=== PATIENT | male | born 1950 | race Two or more races ===

== ENCOUNTER 2016-12-29 00:05 | Emergency (ER) | payer OTHER ==
[~2016-12-29] VITALS: Ht 172.7 cm; Wt 77.1 kg
[~2016-12-29 00:05] MED LIST: ASPI-482 PO; LISI-334 PO; SIMV20TA3 PO
[2016-12-29] MEDS ORDERED: IPRATRPIUM/ALBUTEROL 0.5/2.5MG 3 ML NEBU. NEB ONE (01:30)
--- NOTE | 2016-12-29 02:06 | PHYS DOC ---
Past Medical History Past Medical History: Hypertension, TIA Additional Past Medical Histor: BPH Past Surgical History: Other Additional Past Surgical Histo: prostate, eyes Alcohol Use: None Drug Use: None Adult General Chief Complaint Chief Complaint: SHORTNESS OF BREATH HPI HPI 58-year-old male presenting the emergency department with worsening shortness of breath and cough. This started approximately 3-4 hours ago. He denies a history of heart or lung disease. His cough is nonproductive. He denies any pain. He denies pain in his chest. Location lungs. Duration intermittent. No alleviating factors present. No specific timing. Review of systems is negative for abdominal pain nausea vomiting fevers or chills. He denies diaphoresis. All other review of systems is negative unless otherwise noted in history of present illness. Review of Systems Review of Systems SEE ABOVE. Current Medications Current Medications Current Medications Medications (Trade) Dose Ordered Sig/Gracy Start Time Stop Time Status Last Admin Dose Admin Albuterol/ Ipratropium (Duoneb) 3 ml 1X ONCE 12/29/16 01:30 12/29/16 01:31 DC 12/29/16 02:26 3 ML Allergies Allergies Allergies Coded Allergies Type Severity Reaction Last Updated Verified ibuprofen Allergy Mild hypertension 01/11/14 No Physical Exam Physical Exam Constitutional: Well developed, well nourished, no acute distress, non-toxic appearance. HENT: Normocephalic, atraumatic, bilateral external ears normal, oropharynx moist, no oral exudates, nose normal. [] Eyes: PERRLA, EOMI, conjunctiva normal, no discharge. Neck: Normal range of motion, no tenderness, supple, no stridor. [] Cardiovascular:Heart rate regular rhythm, no murmur [] Lungs & Thorax: Bilateral breath sounds clear to auscultation Abdomen: Bowel sounds normal, soft, no tenderness, no masses, no pulsatile masses. [] Skin: Warm, dry, no erythema, no rash. Back: No tenderness, no CVA tenderness. [] Extremities: No tenderness, no cyanosis, no clubbing, ROM intact, no edema. Neurologic: Alert and oriented X 3, normal motor function, normal sensory function, no focal deficits noted. [] Psychologic: Affect normal, judgement normal, mood normal. [] Current Patient Data Vital Signs Vital Signs Date Time Temp Pulse Resp B/P Pulse Ox O2 Delivery O2 Flow Rate FiO2 3/18/17 02:27 95 Room Air 12/29/16 00:53 96 16 12/29/16 00:09 98.0 141/89 98.0 Lab Values Laboratory Tests Test 12/29/16 02:15 White Blood Count 10.4x10^3/uL (4.0-11.0) Red Blood Count 5.13x10^6/uL (4.30-5.70) Hemoglobin 15.9g/dL (13.0-17.5) Hematocrit 47.9% (39.0-53.0) Mean Corpuscular Volume 93fL (79-100) Mean Corpuscular Hemoglobin 31pg (25-35) Mean Corpuscular Hemoglobin Concent 33g/dL (31-37) Red Cell Distribution Width 13.8% (11.5-14.5) Platelet Count 201x10^3/uL (140-400) Neutrophils (%) (Auto) 62% (31-73) Lymphocytes (%) (Auto) 23% (24-48) L Monocytes (%) (Auto) 13% (0-9) H Eosinophils (%) (Auto) 3% (0-3) Basophils (%) (Auto) 1% (0-3) Neutrophils # (Auto) 6.4x10^3uL (1.8-7.7) Lymphocytes # (Auto) 2.4x10^3/uL (1.0-4.8) Monocytes # (Auto) 1.3x10^3/uL (0.0-1.1) H Eosinophils # (Auto) 0.3x10^3/uL (0.0-0.7) Basophils # (Auto) 0.0x10^3/uL (0.0-0.2) Sodium Level 144mmol/L (136-145) Potassium Level 4.3mmol/L (3.5-5.1) Chloride Level 106mmol/L (98-107) Carbon Dioxide Level 27mmol/L (21-32) Anion Gap 11 (6-14) Blood Urea Nitrogen 18mg/dL (8-26) Creatinine 0.7mg/dL (0.7-1.3) Estimated GFR (Cockcroft-Gault) 112.1 Glucose Level 106mg/dL (70-99) H Calcium Level 8.9mg/dL (8.5-10.1) Total Bilirubin 0.4mg/dL (0.2-1.0) Direct Bilirubin 0.1mg/dL (0.0-0.2) Aspartate Amino Transferase (AST) 66U/L (15-37) H Alanine Aminotransferase (ALT) 109U/L (16-63) H Alkaline Phosphatase 51U/L (46-116) Troponin I Quantitative < 0.017ng/mL (0.000-0.055) OD-Oij-R-Type Natriuretic Peptide 43pg/mL (0-124) Total Protein 7.6g/dL (6.4-8.2) Albumin 3.7g/dL (3.4-5.0) Lipase 191U/L (73-393) Laboratory Tests 12/29/16 02:15 Laboratory Tests 12/29/16 02:15 EKG EKG [] Radiology/Procedures Radiology/Procedures [] Course & Med Decision Making Course & Med Decision Making Pertinent Labs and Imaging studies reviewed. (See chart for details) 58-year-old male presenting to the emergency Department shortness of breath. EKG shows sinus rhythm with a regular rate. ST segments congruent. Vital signs afebrile normal heart rate. Mild hypertensive. Pertinent physical exam findings show normal lungs to auscultation. Regular rate and rhythm. Patient's comfortably sitting in our emergency department without distress. Chest x-ray shows no obvious infiltrate or pneumothorax. Blood work obtained. Patient received a DuoNeb in the emergency department and reported improved symptomatology. Patient had a nuclear medicine cardiac scan back in December 2013 which was unremarkable. Blood work shows normal CBC. Chemistry panel unremarkable. Troponin negative. Patient subsequently discharged home to follow- up with his primary care doctor over the next 2-3 days if the symptoms continue. Dragon Disclaimer Dragon Disclaimer This electronic medical record was generated, in whole or in part, using a voice recognition dictation system. Departure Departure Impression: Primary Impression: Shortness of breath Disposition: 01 HOME, SELF-CARE Condition: STABLE Referrals: MERLE JARRETT MD (PCP) Patient Instructions: Shortness of Breath Additional Instructions: Thank you for allowing us to participate in your care today. Followup with your primary care physician in 3 days if your symptoms do not improve. If you do not have a primary care provider you can ask for a list of our primary care providers. Return to the emergency department you have any new or concerning findings. This should be evaluated by the primary care physician and any necessary consulting services for continued management within a few days after discharge. Return to emergency room if you have any new or concerning symptoms including but not limited to fever, chills, nausea, vomiting, intractable pain, any new rashes, chest pain, shortness of air, uncontrolled bleeding, difficulty breathing, and/or vision loss. You may have been prescribed medication that can change in your level of thinking and ability to operate machinery. These medications include hydrocodone and Ativan. Also, Benadryl has been known to do this as well. Be sure to check with your pharmacist and ask if the medications you've prescribed can affect your level of consciousness. I recommend not operating heavy machinery or driving while on medication such as these. ITZEL JEROME MD Dec 29, 2016 02:06
[2016-12-29 02:54] LABS: BASO % 1 % (0-3); EOS % 3 % (0-3); HEMATOCRIT 47.9 % (39.0-53.0); HEMOGLOBIN 15.9 g/dL (13.0-17.5); LYMPH # 2.4 x10^3/uL (1.0-4.8); LYMPH % 23 % (24-48); MEAN CORPUSCULAR HEMOGLOBIN 31 pg (25-35); MEAN CORPUSCULAR HGB CONC 33 g/dL (31-37); MEAN CORPUSCULAR VOLUME 93 fL (79-100); MONO % 13 % (0-9); NEUT % 62 % (31-73); PLATELET COUNT 201 x10^3/uL (140-400); RED BLOOD COUNT 5.13 x10^6/uL (4.30-5.70); RED CELL DISTRIBUTION WIDTH 13.8 % (11.5-14.5); WHITE BLOOD COUNT 10.4 x10^3/uL (4.0-11.0)
[2016-12-29 03:08] LABS: CALCIUM 8.9 mg/dL (8.5-10.1); CREATININE 0.7 mg/dL (0.7-1.3); GFR 112.1; POTASSIUM 4.3 mmol/L (3.5-5.1)
[2016-12-29 03:14] LABS: ALBUMIN 3.7 g/dL (3.4-5.0); DIRECT BILIRUBIN 0.1 mg/dL (0.0-0.2); TOTAL BILIRUBIN 0.4 mg/dL (0.2-1.0); TOTAL PROTEIN 7.6 g/dL (6.4-8.2)
[2016-12-29 04:15] VITALS: BP 124/73
--- NOTE | 2016-12-29 07:57 | RAD ---
Indication: Chest pain. Technique: Upright portable chest radiograph was obtained. Comparison is from June 04, 2016. Findings: The lungs are clear. Calcified granuloma is noted on the right. The cardiopulmonary silhouette is within normal limits. The bony structures are intact. Leads overlie the patient. Impression: No active pulmonary disease.
--- NOTE | 2016-12-29 09:06 | EKG ---
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
== END 2016-12-29 04:23 | disposition home or self-care (01) ==
LOC: ER 00:05
DX: R06.02 Shortness of breath (principal); R05 Cough; I10 Essential (primary) hypertension; Z86.73 Personal history of transient ischemic attack (TIA), and cerebral infarction without residual deficits; N40.0 Benign prostatic hyperplasia without lower urinary tract symptoms; Z88.8 Allergy status to other drugs, medicaments and biological substances
CPT/HCPCS: 36415; 71010; 80048; 80076; 83690; 83880; 84484; 85027; 93005; 94640; 99285; J7620

== ENCOUNTER → 2017-07-11 | Outpatient (CLI) | payer OTHER ==
--- NOTE | 2017-07-11 09:57 | FMS ---
Examination: 2 views of the chest History: History of cough for 3 days. Comparison: 12/29/2016 Findings: The cardiac mediastinal silhouette grossly appears unremarkable. There is no acute infiltrate or visualize pneumothorax.. Tiny nodular opacity projects in the right lung base similar to prior exam. Moderate degenerative changes thoracic spine. Impression: 1. No acute cardiopulmonary findings..
--- NOTE | 2017-07-11 12:46 | EKG ---
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 BORDERLINE ECG 5.79 No previous ECG available for comparison Electronically Signed On 07-18-2017 9:55:55 CDT by Donell Stephens
== END | disposition home or self-care (01) ==
LOC: FMSRAD 09:21
PROVIDERS: ATTEND Family Medicine
DX: R05 Cough (principal)
CPT/HCPCS: 93005

== ENCOUNTER → 2017-08-26 | Outpatient (CLI) | payer OTHER ==
--- NOTE | 2017-08-26 10:25 | CARD ---
APPROVED REPORT EXAM: Two-dimensional and M-mode echocardiogram with Doppler and color Doppler. Other Information Quality : Good INDICATION Chest Pain 2D DIMENSIONS RVDd2.3 (2.9-3.5cm)Left Atrium(2D)2.9 (1.6-4.0cm) IVSd0.9 (0.7-1.1cm)Aortic Root(2D)2.4 (2.0-3.7cm) LVDd4.5 (3.9-5.9cm)LVOT Diameter2.0 (1.8-2.4cm) PWd0.8 (0.7-1.1cm)LVDs2.9 (2.5-4.0cm) FS (%) 30.0 %SV58.9 ml LVEF(%)60.0 (>50%) Aortic Valve AoV Peak Cristiano.112.4cm/sAoV VTI23.7cm AO Peak GR.5.1mmHgLVOT Peak Cristiano.98.5cm/s LVOT VTI 20.86cmAO Mean GR.3mmHg ANTIONE (VMAX)2.50xj8VFJ (VTI)2.68cm2 Mitral Valve MV E Jxuldgoo77.2cm/sMV DECEL YEST714mk MV A Engbxeaz00.9cm/sMV WWF62tq E/A Ratio1.3MVA (PHT)4.04cm2 TDI E/Lateral E'9.6E/Medial E'8.8 Tricuspid Valve TR P. Jwzhfkns985hv/sRAP HHNFZSTU6sjUi TR Peak Gr.33idHxDPUM30uwRn Pulmonary Vein S1 Rlxkhkbb77.5cm/sD2 Ltvzvumu77.8cm/s LEFT VENTRICLE The left ventricle is normal size. There is normal left ventricular wall thickness. The left ventricu lar systolic function is normal and the ejection fraction is within normal range. The Ejection Fracti on is 55-60%. There is normal LV segmental wall motion. Transmitral Doppler flow pattern is Grade I-a bnormal relaxation pattern. RIGHT VENTRICLE The right ventricle is normal size. The right ventricular systolic function is normal. ATRIA The left atrium size is normal. The right atrium size is normal. The interatrial septum is intact wit h no evidence for an atrial septal defect or patent foramen ovale as noted on 2-D or Doppler imaging. AORTIC VALVE The aortic valve is normal in structure and function. Doppler and Color Flow revealed no significant aortic regurgitation. There is no significant aortic valvular stenosis. MITRAL VALVE The mitral valve is normal in structure and function. There is no evidence of mitral valve prolapse. There is no mitral valve stenosis. Doppler and Color-flow revealed trace mitral regurgitation. TRICUSPID VALVE The tricuspid valve is normal in structure and function. Doppler and Color Flow revealed trace tricus pid regurgitation. The PA pressure was estimated at 27 mmHg. There is no tricuspid valve stenosis. PULMONIC VALVE Doppler and Color Flow revealed mild pulmonic valvular regurgitation. There is no pulmonic valvular s tenosis. GREAT VESSELS The aortic root is normal in size. The ascending aorta is normal in size. The IVC is normal in size a nd collapses >50% with inspiration. PERICARDIAL EFFUSION There is no evidence of significant pericardial effusion. Critical Notification Critical Value: No <Conclusion> The left ventricular systolic function is normal and the ejection fraction is within normal range. Th e Ejection Fraction is 55-60%. There is normal LV segmental wall motion.
== END | disposition home or self-care (01) ==
LOC: ECHO 08:44
PROVIDERS: ATTEND Internal Medicine Cardiovascular Disease
DX: R07.89 Other chest pain (principal)
CPT/HCPCS: 93306

== ENCOUNTER → 2017-11-19 | Outpatient (CLI) | payer OTHER | END | disposition home or self-care (01) | LOC: KCIC US 08:52 | DX: R10.9 Unspecified abdominal pain (principal); I77.819 Aortic ectasia, unspecified site | CPT/HCPCS: 76700 ==

== ENCOUNTER → 2017-12-17 | Outpatient (CLI) | payer OTHER ==
[~2017-12-17] MED LIST changes: -ASPI-482 PO; +CONTRAST GIVEN MC; -LISI-334 PO; -SIMV20TA3 PO
[2017-12-17] MEDS: IOHEXOL 240 MG/ML 50ML VIAL. PO (08:50)
[2017-12-17] MEDS: IOHEXOL 300 MG/ML 100ML VIAL. IV (09:33)
== END | disposition home or self-care (01) ==
LOC: KCIC CT 08:01
DX: K76.0 Fatty (change of) liver, not elsewhere classified (principal); K80.20 Calculus of gallbladder without cholecystitis without obstruction; I87.8 Other specified disorders of veins; I70.0 Atherosclerosis of aorta; I25.10 Atherosclerotic heart disease of native coronary artery without angina pectoris; J98.11 Atelectasis
CPT/HCPCS: 74177; Q9966; Q9967

== ENCOUNTER → 2018-03-11 | Outpatient (CLI) | payer OTHER ==
[2018-03-11] MEDS: REGADENOSON 0.4 MG/5 ML DISP.SYRIN. IV (11:08)
== END | disposition home or self-care (01) ==
LOC: NM 08:42
DX: R07.9 Chest pain, unspecified (principal); I10 Essential (primary) hypertension
CPT/HCPCS: 78452; 93017; 96374; 96375; 96376; A9500; J2785

== ENCOUNTER → 2018-09-29 | Outpatient (CLI) | payer OTHER ==
[~2018-09-29] MED LIST changes: +ASPI-482 PO; -CONTRAST GIVEN MC; +LISI-334 PO; +SIMV20TA3 PO
--- NOTE | 2018-09-29 16:48 | RAD ---
MR#: [id number] Date of Study: 09/29/2018 Ordering Physician: MOHINDER BANEGAS, Referring Physician: MOHINDER BANEGAS, Tech: Nelson Lagunas MBA, RDMS, RVT, RDCS, RTR APPROVED REPORT Patient Location: OUT-PATIENT Indications Rest Pain:Bilaterally VELOCITY AND DOPPLER WAVEFORM ANALYSIS RIGHT cm/secWaveformSeverity LEFT cm/secWaveform Severity dCFA 91.0BiphasicdCFA 120.0Biphasic Prof Fem Art. 40.0BiphasicProf Fem Art. 59.0Biphasic Fem Art Prox. 119.0BiphasicFem Art Prox. 91.0Triphasic Fem Art Mid. 85.0TriphasicFem Art Mid. 81.0Triphasic Fem Art Dist. 87.0TriphasicFem Art Dist. 77.0Triphasic Pop Art(Fossa) 62.0TriphasicPop Art(AK) 78.0Triphasic HIGH LIFT DRIVER Prox. 57.0BiphasicPTA Prox. 56.0Biphasic HIGH LIFT DRIVER Dist. 98.0BiphasicPTA Dist. 105.0Biphasic Per Art Mid. 61.0BiphasicPer Art Mid. 72.0Biphasic ROCIO Prox. 41.0BiphasicATA Prox. 58.0Biphasic DPA 81BiphasicDPA 50Biphasic Findings Grayscale images of the lower extremity arterial vessels reveal mild diffuse atherosclerotic plaque. No focal high-grade stenosis is identified. Spectral waveforms and color Doppler are within normal li mits with three-vessel runoff below the knee bilaterally. Critical Notification Critical Value: No <Conclusion> No flow-limiting stenosis is identified in the bilateral lower extremity arterial vessels Signed by : Mohinder Banegas, Electronically Approved : 09/29/2018 16:46:18
--- NOTE | 2018-09-29 16:56 | RAD ---
MR#: [id number] Date of Study: 09/29/2018 Ordering Physician: MOHINDER BANEGAS, Referring Physician: MOHINDER BANEGAS, Tech: Nelson Lagunas MBA, RDMS, RVT, RDCS, RTR APPROVED REPORT Patient Location: OUT-PATIENT Laterality:Bilateral Indications CVA/TIA: Doppler Spectral Velocity Analysis Right Left pCCA 97/18 cm/spCCA 117/26 cm/s mCCA 113/21 cm/smCCA 94/26 cm/s dCCA 111/30 cm/sdCCA 116/27 cm/s Bulb 96/25 cm/sBulb 72/20 cm/s ECA 116/ cm/sECA 124/ cm/s pICA 95/24 cm/spICA 74/25 cm/s Mehran 111/27 cm/smICA 85/32 cm/s dICA 96/25 cm/sdICA 94/31 cm/s Vert. 47/ cm/sVert. 54/ cm/s Subcl. 168/ cm/sSubcl. 112/ cm/s ICA/CCA 0.98ICA/CCA 0.80 Findings Grayscale images of the bilateral carotid arterial system reveals minimal athero-'s chronic plaque. Overall 0 to less than 50% stenosis by velocity criteria with spectral waveforms within normal limits . The bilateral vertebral velocities are antegrade. Normal ICA to CCA ratios are noted. Critical Notification Critical Value: No <Conclusion> No significant carotid occlusive disease bilaterally. Signed by : Mohinder Banegas, Electronically Approved : 09/29/2018 16:55:03
== END | disposition home or self-care (01) ==
LOC: US 07:13
PROVIDERS: ATTEND Internal Medicine Cardiovascular Disease
DX: I70.293 Other atherosclerosis of native arteries of extremities, bilateral legs (principal); I65.23 Occlusion and stenosis of bilateral carotid arteries; Z86.73 Personal history of transient ischemic attack (TIA), and cerebral infarction without residual deficits
CPT/HCPCS: 93880; 93925

== ENCOUNTER → 2020-04-11 | Outpatient (CLI) | payer MEDICARE, OTHER ==
[~2020-04-11] MED LIST changes: +SIMV20TA18 PO; -SIMV20TA3 PO
--- NOTE | 2020-04-11 08:29 | RAD ---
Examination: Ultrasound abdomen complete HISTORY: Left flank pain COMPARISON: 11/19/2017 FINDINGS: The visualized pancreas grossly appears unremarkable. There is increased echogenicity identified throughout the liver likely hepatic steatosis. The liver length measures 19.5 cm. The common bile duct measures 3.7 mm in diameter. The right kidney measures 13.6 cm in length. The left kidney measures 13.2 cm in length. Multiple echogenicities identified in the gallbladder likely gallstones. IMPRESSION: 1. Cholelithiasis. 2. Hepatomegaly with hepatic steatosis. Electronically signed by: Mark Mackey MD (04/11/2020 8:26 AM) [id number]
== END | disposition home or self-care (01) ==
LOC: US 09:41
PROVIDERS: ATTEND Family Medicine
DX: K80.20 Calculus of gallbladder without cholecystitis without obstruction (principal); K80.80 Other cholelithiasis without obstruction; R16.0 Hepatomegaly, not elsewhere classified; K76.0 Fatty (change of) liver, not elsewhere classified; I48.91 Unspecified atrial fibrillation
CPT/HCPCS: 76700

== ENCOUNTER → 2020-05-16 | Outpatient (CLI) | payer MEDICARE ==
[~2020-05-16] MED LIST changes: +REGADENOSON 0.4 MG/5 ML DISP.SYRIN. IV ONE
--- NOTE | 2020-05-16 12:34 | RAD ---
MR#: [id number] Date of Study: 05/16/2020 Ordering Physician: MOHINDER BANEGAS, Referring Physician: FAZAL SANDERS Tech: CONSTANTIN Franco APPROVED REPORT Test Type: Pharmacological Stress Nurse/Tech: Traci Reyes R.N. Test Indications: FARIAS Cardiac History: Family history, Hypertension Medications: See Electronic Medical Record Medical History: See Electronic Medical Record Resting ECG: NSR Resting Heart Rate: 73 bpm Resting Blood Pressure: 124/71mmHg Pretest Chest Pain: No chest pain Nurse/Tech Notes S1S2, lungs sound clear Consent: The procedure was explained to the patient in lay terms. Informed consent was witnessed. Torrey eout was entered into MRI Interventions. History and Stress Test performed by CONSTANTIN Franco Pharm. Details Pharmacologic stress testing was performed using 0.4mg per 5ml of regadenoson given intravenously ove r 7-10 seconds. Stress Symptoms Dyspnea POST EXERCISE Reason for Termination: Infusion complete Target HR: 125 Max HR: 102 bpm Max Blood Pressure: 127/68mmHg Blood Pressure response to exercise: Normal blood pressure response during stress. Chest Pain: No. Arrhythmia: No. ST Change: No. INTERPRETATION Stress EKG Conclusion: Baseline EKG showed sinus rhythm. No ischemic changes at peak stress. No arr hythmias. Imaging Protocol IMAGE PROTOCOL: Rest Tc-99m/stress Tc-99m 1 day Rest: Stress: Viability: Radiopharm.Tc99m WsfrepehkWl14o Sestamibi Njfs24eJm 33mCi Duration 15min. 11min. Img Date 05/16/2020 05/16/2020 Inj-Img Vfbi10rai. 60min. Rest Admin Site:IV - Right AntecubitalAdministrator:CONSTANTIN Franco Stress Admin Site: IV - Right AntecubitalAdministrator: CONSTANTIN Franco STRESS DATA End Diast. Vol.74.0mlEnd Syst. Vol.13.0ml Myocardial Iybg498.0gEject. Saeandkn94.0% Stress Scores Regional WT0.00Summed WT3.00 Regional WM0.00Summed WM0.00 Study quality was good. Left Ventricular size was Normal at Rest and Stress. Lung uptake was . Left Ventricular ejection fraction is 73%. The rest and stress images show normal perfusion, normal contraction and thickening. LV Perf. Quant 17 Seg. SSS0.00 17 Seg. SRS5.00 17 Seg. SDS0.00 Stress Defect Extent (% LAD)0.00Rest Defect Extent (% LAD)0.00Rev. Defect Extent (% LAD)0.00 Stress Defect Extent (% LCX) 0.00Rest Defect Extent (% LCX)7.50Rev. Defect Extent (% LCX)0.00 Stress Defect Extent (% RCA)0.00Rest Defect Extent (% RCA)0.00Rev. Defect Extent (% RCA)0.00 Stress Defect Extent (% CHANTE)0.00Rest Defect Extent (% CHANTE)4.30Rev. Defect Extent (% CHANTE)0.00 Conclusion 1. Regadenoson cardioisotope stress test did not show any evidence of ischemia or infarct. 2. Normal left ventricular systolic function with ejection fraction calculated at 73%. 3. Low risk for cardiac events. Signed by : Eduardo Rico, Electronically Approved : 05/16/2020 12:34:29
--- NOTE | 2020-05-16 15:33 | CARD ---
MR#: [id number] Date of Study: 05/16/2020 Ordering Physician: MOHINDER BANEGAS, Referring Physician: MOHINDER BANEGAS, Tech: Vania Sanford APPROVED REPORT EXAM: Two-dimensional and M-mode echocardiogram with Doppler and color Doppler. Other Information Quality : AverageHR: 87bpm INDICATION Dyspnea 2D DIMENSIONS Left Atrium(2D)3.5 (1.6-4.0cm)IVSd1.1 (0.7-1.1cm) Aortic Root(2D)3.3 (2.0-3.7cm)LVDd4.2 (3.9-5.9cm) LVOT Diameter2.0 (1.8-2.4cm)PWd1.2 (0.7-1.1cm) LVDs2.8 (2.5-4.0cm)FS (%) 33.7 % SV50.4 mlLVEF(%)62.9 (>50%) Aortic Valve AoV Peak Cristiano.134.8cm/sAoV VTI27.8cm AO Peak GR.7.3mmHgLVOT VTI 23.76cm AO Mean GR.4mmHg Mitral Valve MV E Yimqskdd12.2cm/sMV E Peak Gr.3mmHg MV DECEL [id number] A Xigwadvu26.9cm/s MV E Mean Gr.2mmHgE/A Ratio1.2 TDI Lateral E' P. V8.69cm/sMedial E' P. V9.27cm/s E/Lateral E'10.0E/Medial E'9.4 Tricuspid Valve TR P. Wzipfyox443gg/sRAP MNWVHQFB7xpSo TR Peak Gr.46jzYeAHAU10zjTd Pulmonary Vein S1 Exovbuzz24.3cm/sS2 Ozmgikie36.86cm/s D2 Jsvypoqz34.9cm/s LEFT VENTRICLE The left ventricle is normal size. There is mild concentric left ventricular hypertrophy. The left ve ntricular systolic function is normal. The Ejection Fraction is 55-60%. There is normal LV segmental wall motion. Transmitral Doppler flow pattern is Grade II-pseudonormal filling dynamics. RIGHT VENTRICLE The right ventricle is normal size. There is normal right ventricular wall thickness. The right ventr icular systolic function is normal. ATRIA The left atrium size is normal. The right atrium size is normal. The interatrial septum is intact wit h no evidence for an atrial septal defect or patent foramen ovale as noted on 2-D or Doppler imaging. AORTIC VALVE The aortic valve is thickened but opens well. Doppler and Color Flow revealed no significant aortic r egurgitation. Calculated aortic valve area is 2.68 cm2 with maximum pressure gradient of 8 mmHg and m jennifer pressure gradient of 5 mmHg. MITRAL VALVE The mitral valve is normal in structure and function. There is no evidence of mitral valve prolapse. There is no mitral valve stenosis. Doppler and Color-flow revealed trace mitral regurgitation. TRICUSPID VALVE The tricuspid valve is normal in structure and function. Doppler and Color Flow revealed trace tricus pid regurgitation with an estimated PAP of 31 mmHg. There is no tricuspid valve stenosis. PULMONIC VALVE The pulmonic valve is not well visualized. Doppler and Color Flow revealed no pulmonic valvular regur gitation. GREAT VESSELS The aortic root is normal in size. The IVC is normal in size and collapses >50% with inspiration. PERICARDIAL EFFUSION There is no evidence of significant pericardial effusion. Critical Notification Critical Value: No <Conclusion> The left ventricular systolic function is normal. The Ejection Fraction is 55-60%. There is normal LV segmental wall motion. Trace mitral regurgitation. Trace tricuspid regurgitation with an estimated PAP of 31 mmHg. There is no evidence of significant pericardial effusion. Signed by : Eduardo Rico, Electronically Approved : 05/16/2020 15:33:18
== END | disposition home or self-care (01) ==
LOC: NM 07:35
PROVIDERS: ATTEND Internal Medicine Cardiovascular Disease
DX: I51.7 Cardiomegaly (principal); R06.00 Dyspnea, unspecified
CPT/HCPCS: 78452; 93017; 93306; A9500; J2785

== ENCOUNTER → 2020-11-23 | Outpatient (CLI) | payer MEDICARE ==
[~2020-11-23] MED LIST changes: +CLOP75TA PO; +DULO60CA6 PO; -LISI-334 PO; +LISI20TA18 PO; +MONT10TA49 PO; +PANT40TA77 PO; -REGADENOSON 0.4 MG/5 ML DISP.SYRIN. IV ONE
== END ==
LOC: LAB 12:08
PROVIDERS: ATTEND Surgery Vascular Surgery
DX: Z01.812 Encounter for preprocedural laboratory examination (principal); I70.235 Atherosclerosis of native arteries of right leg with ulceration of other part of foot; Z20.822 Contact with and (suspected) exposure to COVID-19
CPT/HCPCS: U0003

== ENCOUNTER 2020-11-25 08:56 | Outpatient (CLI) | payer MEDICARE ==
[2020-11-25] VITALS (8 sets, daily range): BP systolic 140–161; BP diastolic 82–93
[~2020-11-25] VITALS: Ht 175.3 cm; Wt 74.8 kg
[~2020-11-25 08:56] MED LIST changes: -CLOP75TA PO; -DULO60CA6 PO; -MONT10TA49 PO; -PANT40TA77 PO
[2020-11-25] MEDS ORDERED: IV NORMAL SALINE 1000ML BAG 1,000 ML IV SCH (09:15)
[2020-11-25] MEDS ORDERED: PANT40TA77 PO (09:26)
[2020-11-25] MEDS ORDERED: DULO60CA6 PO (09:26)
[2020-11-25] MEDS ORDERED: MONT10TA49 PO (09:26)
[2020-11-25 09:30] LABS: HEMATOCRIT 43.2 % (39.0-53.0); HEMOGLOBIN 14.1 g/dL (13.0-17.5); RED BLOOD COUNT 4.99 x10^6/uL (4.30-5.70); RED CELL DISTRIBUTION WIDTH 14.9 % (11.5-14.5); WHITE BLOOD COUNT 22.5 x10^3/uL (4.0-11.0)
[2020-11-25 09:41] LABS: CALCIUM 9.2 mg/dL (8.5-10.1); CREATININE 0.8 mg/dL (0.7-1.3); POTASSIUM 3.7 mmol/L (3.5-5.1)
[2020-11-25] MEDS ORDERED: fentaNYL PF VIAL 100 MCG/2 ML VIAL ONE (09:55)
[2020-11-25] MEDS ORDERED: MIDAZOLAM HCL/PF 2 MG/2 ML VIAL. ONE (09:55)
[2020-11-25 09:59] LABS: PROTHROMBIN TIME PATIENT 13.6 SEC (11.7-14.0)
[2020-11-25] MEDS ORDERED: IODIXANOL 320 MG/ML 100 ML VIAL. ONE (10:30)
[2020-11-25] MEDS ORDERED: LIDOCAINE 1% Multi-Dose 20 ML VIAL. ONE (10:30)
[2020-11-25] MEDS ORDERED: HEPARIN for IV BOLUS 10,000 UNIT/10 ML VIAL. ONE (13:44)
[2020-11-25] MEDS ORDERED: LIDOCAINE 1% Multi-Dose 20 ML VIAL. INJ ONE (13:45)
[2020-11-25] MEDS ORDERED: MIDAZOLAM HCL/PF 2 MG/2 ML VIAL. IV ONE (13:45)
[2020-11-25] MEDS ORDERED: IODIXANOL 320 MG/ML 100 ML VIAL. IART ONE (13:45)
[2020-11-25] MEDS ORDERED: fentaNYL PF VIAL 100 MCG/2 ML VIAL IV ONE (13:45)
[2020-11-25] MEDS ORDERED: HEPARIN for IV BOLUS 10,000 UNIT/10 ML VIAL. IV ONE (14:00)
[2020-11-25] MEDS ORDERED: CLOPIDOGREL BISULFATE 75 MG TABLET PO ONE (14:45)
[2020-11-25] MEDS ORDERED: CLOPIDOGREL BISULFATE 75 MG TABLET ONE (14:51)
--- NOTE | 2020-11-25 14:55 | PDOC ---
PROGRESS NOTES Date of Service DATE: 11/25/20 TIME: 14:54 Subjective Subjective Pt seen and examined prior to the procedure no changes to the H&P He has right foot rest pain and shallow ulcers at the toes Will plan for left RICKSHAW DRIVER access right leg intervention consent signed after discusion via engineering administrator Objective Objective Vital Signs Date Time Temp Pulse Resp B/P (MAP) Pulse Ox O2 Delivery O2 Flow Rate FiO2 11/25/20 13:26 14 11/25/20 09:50 Room Air 11/25/20 09:34 98.1 100 140/84 (102) 98 98.1 Comment Review of Relevant I have reviewed the following items jagjit (where applicable) has been applied. Labs Laboratory Tests Test 11/25/20 09:24 White Blood Count 22.5 x10^3/uL (4.0-11.0) Red Blood Count 4.99 x10^6/uL (4.30-5.70) Hemoglobin 14.1 g/dL (13.0-17.5) Hematocrit 43.2 % (39.0-53.0) Mean Corpuscular Volume 87 fL (79-100) Mean Corpuscular Hemoglobin 28 pg (25-35) Mean Corpuscular Hemoglobin Concent 33 g/dL (31-37) Red Cell Distribution Width 14.9 % (11.5-14.5) Platelet Count 331 x10^3/uL (140-400) Prothrombin Time 13.6 SEC (11.7-14.0) Prothromb Time International Ratio 1.1 (0.8-1.1) Sodium Level 140 mmol/L (136-145) Potassium Level 3.7 mmol/L (3.5-5.1) Chloride Level 102 mmol/L (98-107) Carbon Dioxide Level 28 mmol/L (21-32) Anion Gap 10 (6-14) Blood Urea Nitrogen 19 mg/dL (8-26) Creatinine 0.8 mg/dL (0.7-1.3) Estimated GFR (Cockcroft-Gault) 95.0 Glucose Level 110 mg/dL (70-99) Calcium Level 9.2 mg/dL (8.5-10.1) Laboratory Tests Test 11/25/20 09:24 White Blood Count 22.5 x10^3/uL (4.0-11.0) Red Blood Count 4.99 x10^6/uL (4.30-5.70) Hemoglobin 14.1 g/dL (13.0-17.5) Hematocrit 43.2 % (39.0-53.0) Mean Corpuscular Volume 87 fL (79-100) Mean Corpuscular Hemoglobin 28 pg (25-35) Mean Corpuscular Hemoglobin Concent 33 g/dL (31-37) Red Cell Distribution Width 14.9 % (11.5-14.5) Platelet Count 331 x10^3/uL (140-400) Prothrombin Time 13.6 SEC (11.7-14.0) Prothromb Time International Ratio 1.1 (0.8-1.1) Sodium Level 140 mmol/L (136-145) Potassium Level 3.7 mmol/L (3.5-5.1) Chloride Level 102 mmol/L (98-107) Carbon Dioxide Level 28 mmol/L (21-32) Anion Gap 10 (6-14) Blood Urea Nitrogen 19 mg/dL (8-26) Creatinine 0.8 mg/dL (0.7-1.3) Estimated GFR (Cockcroft-Gault) 95.0 Glucose Level 110 mg/dL (70-99) Calcium Level 9.2 mg/dL (8.5-10.1) Medications Current Medications Sodium Chloride 1,000 ml @ 60 mls/hr [id number] IV Last administered on 11/25/20at 13:20; Start 11/25/20 at 09:15; Stop 11/26/20 at 09:14 Midazolam HCl (Versed) 2 mg STK-MED ONCE .ROUTE ; Start 11/25/20 at 09:55; Stop 11/25/20 at 09:56; Status DC Fentanyl Citrate (Fentanyl 2ml Vial) 100 mcg STK-MED ONCE .ROUTE ; Start 11/25/20 at 09:55; Stop 11/25/20 at 09:56; Status DC Iodixanol (Visipaque 320) 100 ml STK-MED ONCE .ROUTE ; Start 11/25/20 at 10:30; Stop 11/25/20 at 10:30; Status DC Lidocaine HCl (Lidocaine 1% 20ml Vial) 20 ml STK-MED ONCE .ROUTE ; Start 11/25/20 at 10:30; Stop 11/25/20 at 10:30; Status DC Heparin Sodium/ Sodium Chloride 1,000 ml @ As Directed STK-MED ONCE .ROUTE ; Start 11/25/20 at 10:30; Stop 11/25/20 at 10:30; Status DC Heparin Sodium/ Sodium Chloride (HEPARIN for ARTERIAL LINE FLUSH) 1,000 unit 1X ONCE IART Last administered on 11/25/20at 13:45; Start 11/25/20 at 13:45; Stop 11/25/20 at 13:48; Status DC Heparin Sodium/ Sodium Chloride (HEPARIN for ARTERIAL LINE FLUSH) 1,000 unit 1X ONCE IART Last administered on 11/25/20at 13:45; Start 11/25/20 at 13:45; Stop 11/25/20 at 13:48; Status DC Midazolam HCl (Versed) 2 mg 1X ONCE IV Last administered on 11/25/20at 13:26; Start 11/25/20 at 13:45; Stop 11/25/20 at 13:48; Status DC Fentanyl Citrate (Fentanyl 2ml Vial) 100 mcg 1X ONCE IV Last administered on 11/25/20at 13:26; Start 11/25/20 at 13:45; Stop 11/25/20 at 13:48; Status DC Iodixanol (Visipaque 320) 100 ml 1X ONCE IART Last administered on 11/25/20at 14:45; Start 11/25/20 at 13:45; Stop 11/25/20 at 13:48; Status DC Lidocaine HCl (Lidocaine 1% 20ml Vial) 20 ml 1X ONCE INJ Last administered on 11/25/20at 13:29; Start 11/25/20 at 13:45; Stop 11/25/20 at 13:48; Status DC Heparin Sodium (Porcine) (Heparin Sodium) 10,000 unit STK-MED ONCE .ROUTE ; Start 11/25/20 at 13:44; Stop 11/25/20 at 13:44; Status DC Heparin Sodium (Porcine) (Heparin Sodium) 6,000 unit 1X ONCE IV Last administered on 11/25/20at 13:44; Start 11/25/20 at 14:00; Stop 11/25/20 at 14:09; Status DC Clopidogrel Bisulfate (Plavix) 300 mg 1X ONCE PO ; Start 11/25/20 at 14:45; Stop 11/25/20 at 14:49; Status DC Clopidogrel Bisulfate (Plavix) 75 mg STK-MED ONCE .ROUTE ; Start 11/25/20 at 14:51; Stop 11/25/20 at 14:51; Status DC Active Scripts Active Reported Pantoprazole Sodium (Pantoprazole Sodium) 40 Mg Tablet. 40 Mg PO DAILYAC Montelukast Sodium Tablet (Montelukast Sodium) 10 Mg Tablet 10 Mg PO HS Cymbalta (Duloxetine Hcl) 60 Mg Capsule. 1 Cap PO DAILY Aspir 81 (Aspirin) 81 Mg Tablet. 81 Mg PO Simvastatin 20 Mg Tablet 20 Mg PO Lisinopril 20 Mg Tablet 20 Mg PO Vitals/I & O Vital Sign - Last 24 Hours 11/25/20 11/25/20 11/25/20 09:34 09:50 13:26 Temp 98.1 98.1 Pulse 100 Resp 20 14 B/P (MAP) 140/84 (102) Pulse Ox 98 O2 Delivery Room Air Room Air Justifications for Admission Other Justification ARACELI MACHADO MD Nov 25, 2020 14:55
--- NOTE | 2020-11-25 15:30 | NUR ---
Patient's dorsalis pedis pulse couldn't be found by this RN but Dr. Horn came to bedside and was able to doppler pulse(right foot). Patient able to wiggle toes and doesn't have any pain in that foot at this time. Patient will see Dr. Horn back in the office in 2-3 weeks. Discharge instructions will be printed in Greenlandic.
--- NOTE | 2020-11-25 15:30 | PDOC4 ---
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 Ultrasound-guided access left common femoral artery #2 radiology supervision interpretation aortogram #3 radiology supervision to rotation right leg runoff 4 right TP trunk and peroneal artery balloon angioplasty Surgeon: Malachi Machado MD Vascular surgery Anesthesia Type: Sedation under surgeon and RN supervision using intravenous fentanyl Versed total 60 minutes Versed 1 mg fentanyl 100 mcg Blood Loss: Minimal Specimans Obtained: None Findings: 1. The aorta is widely patent without aneurysm or significant occlusive disease #2 bilateral common and external arteries widely patent without significant occlusive disease or aneurysm #3 bilateral common femoral profunda femoris arteries widely patent 4 right superficial femoral artery and popliteal artery widely patent #5 below the knee on the right the tibioperoneal trunk occludes abruptly in the very distal peroneal artery reconstitutes, the proximal anterior tibial artery is patent but then occludes distally and reconstitutes is a very small dorsalis pedis artery in the foot #6 after balloon angioplasty the TP trunk and peroneal artery give inline flow to the ankle #7 I was unable to cross the ROCIO occlusion Complications: None Operative Note: Patient was taken to the [facility] and placed supine on the table. The groins were prepped draped in usual sterile fashion a timeout was performed. Conscious sedation was induced under Surgeon RN supervision using intravenous fentanyl and Versed with appropriate monitoring devices in place. Attention was directed to left groin where the left common femoral arteries fluoroscopically marked of the femoral head and exam with ultrasound. The vessel was found to be widely patent with good flow and an image of the vessels taken and saved for the medical record. Under real-time ultrasound guidance local anesthetic was injected in the left groin and the left common femoral artery was directly accessed under fluoroscopic guidance using a micropuncture needle. This was used to place a micropuncture wire to the iliac artery under fluoroscopic guidance and exchange the needle for a micropuncture sheath. This was used to introduce a Bentson wire and abdominal aorta and exchanged the micropuncture sheath for a 5 Czech sheath which was aspirated and flushed without difficulty. These were used to introduce a flush catheter to the abd ominal aorta and aortogram was obtained. The cath was pulled back to your bifurcation oblique pelvic angiogram was obtained. Cath was used to hook aorta bifurcation and passed the wire and the catheter to the right common femoral artery. Right leg runoff was obtained. To obtain better pictures advance the catheter down to the right mid SFA again over the wire. Additional right leg angiograms were obtained and we decided to intervene. Patient was given intravenous heparin and the catheter was used to pass a stiff Storq wire into the popliteal artery under fluoroscopic guidance. This was used to exchange the 5 Czech sheath for a 6 Czech 90 cm Terumo destination sheath passed up and over the bifurcation of the distal tip in the right mid popliteal artery. I used 0.035 and a 0.018 Navicross Terumo catheter along with a 0.018 Terumo Glidewire advantage to cross the TP trunk and proximal peroneal artery OPERATING THEATRE TECHNICIAN and reenter the peroneal artery at the ankle. I confirmed luminal placement with angiography to the catheter tip and then passed the wire out the ankle. The wire was used to deliver a 2 x 200 and a 3 x 200 and then a 4 x 40 angioplasty balloon to angioplasty the distal peroneal artery the proximal peroneal artery and the TP trunk respectively. Angiography showed inline flow to the ankle with good collateralization not to part of the foot. The dorsalis pedis reconstituted and this was not initially seen prior. I selected the anterior tibial artery and attempted to cross the long ROCIO OPERATING THEATRE TECHNICIAN but was unable to reenter the true lumen distally. The cath was removed. Angiography showed good inline flow to the ankle via the peroneal. The sheath was pulled back to the aorta and wire directed to the aorta. The sheath was removed over the wire and the wire was used to deliver a 6 Czech Angio-Seal device which was deployed the left femoral artery access site with excellent hemostasis. The patient was loaded with 300 mg of Plavix and then escorted carbon stable condition. No complications and he tolerated procedure well throughout. ARACELI MACHADO MD Nov 25, 2020 15:29
--- NOTE | 2020-11-25 15:35 | PDOC ---
PROGRESS NOTES Date of Service DATE: 11/25/20 TIME: 15:33 Subjective Subjective Patient seen and examined in recovery. Excellent peroneal artery signal at the distal ankle on the right Left femoral artery access site soft, no mass no hematoma. I discussed the findings with the patient's and her son (her son was speaking over the telephone and acted as surgical scrub technologist) Doing well Home today Objective Objective Vital Signs Date Time Temp Pulse Resp B/P (MAP) Pulse Ox O2 Delivery O2 Flow Rate FiO2 11/25/20 14:58 95 14 95 Room Air 11/25/20 09:34 98.1 140/84 (102) 98.1 Comment Review of Relevant I have reviewed the following items jagjit (where applicable) has been applied. Labs Laboratory Tests Test 11/25/20 09:24 White Blood Count 22.5 x10^3/uL (4.0-11.0) Red Blood Count 4.99 x10^6/uL (4.30-5.70) Hemoglobin 14.1 g/dL (13.0-17.5) Hematocrit 43.2 % (39.0-53.0) Mean Corpuscular Volume 87 fL (79-100) Mean Corpuscular Hemoglobin 28 pg (25-35) Mean Corpuscular Hemoglobin Concent 33 g/dL (31-37) Red Cell Distribution Width 14.9 % (11.5-14.5) Platelet Count 331 x10^3/uL (140-400) Prothrombin Time 13.6 SEC (11.7-14.0) Prothromb Time International Ratio 1.1 (0.8-1.1) Sodium Level 140 mmol/L (136-145) Potassium Level 3.7 mmol/L (3.5-5.1) Chloride Level 102 mmol/L (98-107) Carbon Dioxide Level 28 mmol/L (21-32) Anion Gap 10 (6-14) Blood Urea Nitrogen 19 mg/dL (8-26) Creatinine 0.8 mg/dL (0.7-1.3) Estimated GFR (Cockcroft-Gault) 95.0 Glucose Level 110 mg/dL (70-99) Calcium Level 9.2 mg/dL (8.5-10.1) Laboratory Tests Test 11/25/20 09:24 White Blood Count 22.5 x10^3/uL (4.0-11.0) Red Blood Count 4.99 x10^6/uL (4.30-5.70) Hemoglobin 14.1 g/dL (13.0-17.5) Hematocrit 43.2 % (39.0-53.0) Mean Corpuscular Volume 87 fL (79-100) Mean Corpuscular Hemoglobin 28 pg (25-35) Mean Corpuscular Hemoglobin Concent 33 g/dL (31-37) Red Cell Distribution Width 14.9 % (11.5-14.5) Platelet Count 331 x10^3/uL (140-400) Prothrombin Time 13.6 SEC (11.7-14.0) Prothromb Time International Ratio 1.1 (0.8-1.1) Sodium Level 140 mmol/L (136-145) Potassium Level 3.7 mmol/L (3.5-5.1) Chloride Level 102 mmol/L (98-107) Carbon Dioxide Level 28 mmol/L (21-32) Anion Gap 10 (6-14) Blood Urea Nitrogen 19 mg/dL (8-26) Creatinine 0.8 mg/dL (0.7-1.3) Estimated GFR (Cockcroft-Gault) 95.0 Glucose Level 110 mg/dL (70-99) Calcium Level 9.2 mg/dL (8.5-10.1) Medications Current Medications Sodium Chloride 1,000 ml @ 60 mls/hr [id number] IV Last administered on 11/25/20at 13:20; Start 11/25/20 at 09:15; Stop 11/26/20 at 09:14 Midazolam HCl (Versed) 2 mg STK-MED ONCE .ROUTE ; Start 11/25/20 at 09:55; Stop 11/25/20 at 09:56; Status DC Fentanyl Citrate (Fentanyl 2ml Vial) 100 mcg STK-MED ONCE .ROUTE ; Start 11/25/20 at 09:55; Stop 11/25/20 at 09:56; Status DC Iodixanol (Visipaque 320) 100 ml STK-MED ONCE .ROUTE ; Start 11/25/20 at 10:30; Stop 11/25/20 at 10:30; Status DC Lidocaine HCl (Lidocaine 1% 20ml Vial) 20 ml STK-MED ONCE .ROUTE ; Start 11/25/20 at 10:30; Stop 11/25/20 at 10:30; Status DC Heparin Sodium/ Sodium Chloride 1,000 ml @ As Directed STK-MED ONCE .ROUTE ; Start 11/25/20 at 10:30; Stop 11/25/20 at 10:30; Status DC Heparin Sodium/ Sodium Chloride (HEPARIN for ARTERIAL LINE FLUSH) 1,000 unit 1X ONCE IART Last administered on 11/25/20at 13:45; Start 11/25/20 at 13:45; Stop 11/25/20 at 13:48; Status DC Heparin Sodium/ Sodium Chloride (HEPARIN for ARTERIAL LINE FLUSH) 1,000 unit 1X ONCE IART Last administered on 11/25/20at 13:45; Start 11/25/20 at 13:45; Stop 11/25/20 at 13:48; Status DC Midazolam HCl (Versed) 2 mg 1X ONCE IV Last administered on 11/25/20at 13:26; Start 11/25/20 at 13:45; Stop 11/25/20 at 13:48; Status DC Fentanyl Citrate (Fentanyl 2ml Vial) 100 mcg 1X ONCE IV Last administered on 11/25/20at 13:26; Start 11/25/20 at 13:45; Stop 11/25/20 at 13:48; Status DC Iodixanol (Visipaque 320) 100 ml 1X ONCE IART Last administered on 11/25/20at 14:45; Start 11/25/20 at 13:45; Stop 11/25/20 at 13:48; Status DC Lidocaine HCl (Lidocaine 1% 20ml Vial) 20 ml 1X ONCE INJ Last administered on 11/25/20at 13:29; Start 11/25/20 at 13:45; Stop 11/25/20 at 13:48; Status DC Heparin Sodium (Porcine) (Heparin Sodium) 10,000 unit STK-MED ONCE .ROUTE ; Start 11/25/20 at 13:44; Stop 11/25/20 at 13:44; Status DC Heparin Sodium (Porcine) (Heparin Sodium) 6,000 unit 1X ONCE IV Last administered on 11/25/20at 13:44; Start 11/25/20 at 14:00; Stop 11/25/20 at 14:09; Status DC Clopidogrel Bisulfate (Plavix) 300 mg 1X ONCE PO Last administered on 2/12/2 1at 14:57; Start 11/25/20 at 14:45; Stop 11/25/20 at 14:49; Status DC Clopidogrel Bisulfate (Plavix) 75 mg STK-MED ONCE .ROUTE ; Start 11/25/20 at 14:51; Stop 11/25/20 at 14:51; Status DC Active Scripts Active Reported Pantoprazole Sodium (Pantoprazole Sodium) 40 Mg Tablet. 40 Mg PO DAILYAC Montelukast Sodium Tablet (Montelukast Sodium) 10 Mg Tablet 10 Mg PO HS Cymbalta (Duloxetine Hcl) 60 Mg Capsule. 1 Cap PO DAILY Aspir 81 (Aspirin) 81 Mg Tablet. 81 Mg PO Simvastatin 20 Mg Tablet 20 Mg PO Lisinopril 20 Mg Tablet 20 Mg PO Vitals/I & O Vital Sign - Last 24 Hours 11/25/20 11/25/20 11/25/20 11/25/20 09:34 09:50 13:26 14:58 Temp 98.1 98.1 Pulse 100 95 Resp 20 14 14 B/P (MAP) 140/84 (102) Pulse Ox 98 95 O2 Delivery Room Air Room Air Room Air Justifications for Admission Other Justification ARACELI MACHADO MD Nov 25, 2020 15:34
[2020-11-25] MEDS ORDERED: CLOP75TA PO (15:41)
--- NOTE | 2020-11-25 16:30 | NUR ---
Discharge Note: ELENA NORIEGA Discharge instructions and discharge home medications reviewed with Patient and a copy given. All questions have been answered and understanding verbalized. The following instructions and handouts were given: peripheral vascular disease,clopidogrel,groin site care,adult moderate sedation Discontinued lines and drains: Peripheral IV intact. [facility]
== END 2020-11-25 16:40 | disposition home or self-care (01) ==
LOC: CCL 08:56
PROVIDERS: ATTEND Surgery Vascular Surgery
DX: I70.235 Atherosclerosis of native arteries of right leg with ulceration of other part of foot (principal); I10 Essential (primary) hypertension; K21.9 Gastro-esophageal reflux disease without esophagitis; E78.00 Pure hypercholesterolemia, unspecified; J45.909 Unspecified asthma, uncomplicated; Z85.828 Personal history of other malignant neoplasm of skin; Z79.82 Long term (current) use of aspirin; Z79.899 Other long term (current) drug therapy; Z98.890 Other specified postprocedural states; Z88.8 Allergy status to other drugs, medicaments and biological substances
CPT/HCPCS: 36415; 37228; 75625; 75710; 76937; 80048; 85027; 85610; 99152; 99153; C1713; C1725; C1760; C1769; C1892; C1894; J1644; J2250; J3010; J3490; J7030; Q9967; G0269; C1771

== ENCOUNTER 2021-01-24 06:44 | Outpatient (CLI) | payer MEDICARE ==
[~2021-01-24] VITALS: Ht 175.3 cm; Wt 75.7 kg
[2021-01-24] VITALS (10 sets, daily range): BP systolic 110–152; BP diastolic 56–79
[~2021-01-24 06:44] MED LIST changes: +CLOP75TA PO; +DULO60CA6 PO; +MONT10TA49 PO; +PANT40TA77 PO
[2021-01-24] MEDS ORDERED: LIDOCAINE 1% Multi-Dose 20 ML VIAL. ONE (07:45)
[2021-01-24] MEDS ORDERED: IODIXANOL 320 MG/ML 100 ML VIAL. ONE ×2 (07:46)
[2021-01-24 07:48] LABS: CALCIUM 8.8 mg/dL (8.5-10.1); CREATININE 0.7 mg/dL (0.7-1.3); GFR 110.9; HEMATOCRIT 40.7 % (39.0-53.0); HEMOGLOBIN 13.7 g/dL (13.0-17.5); POTASSIUM 3.8 mmol/L (3.5-5.1); RED BLOOD COUNT 4.66 x10^6/uL (4.30-5.70); RED CELL DISTRIBUTION WIDTH 14.5 % (11.5-14.5); WHITE BLOOD COUNT 11.5 x10^3/uL (4.0-11.0)
[2021-01-24] MEDS ORDERED: AMLO-187 PO (07:54)
[2021-01-24 07:59] LABS: PROTHROMBIN TIME PATIENT 13.8 SEC (11.7-14.0)
[2021-01-24] MEDS ORDERED: CHOL500021 PO (08:05)
[2021-01-24] MEDS ORDERED: FLUT16SP NS (08:05)
[2021-01-24] MEDS ORDERED: NAPH15DR60 OP (08:05)
[2021-01-24] MEDS ORDERED: GLUC-11 PO (08:05)
--- NOTE | 2021-01-24 08:13 | PDOC ---
PROGRESS NOTES Date of Service DATE: 01/24/21 TIME: 08:11 Subjective Subjective 70 y/o male who is a primary patient of my partner Dr Carvajal -- known to me from previous right leg intervention for limb salvage. He had right leg uclers with sever tibial disease and underwent right leg TP trunk / peroneal intervention with healing of ulcers on the right foot He now presents with rest pain left foot. plan will be for right femoral access, left leg intervention for rest pain (limb salvage) Cr normal Hg normal ASA 3 airway 2 Objective Objective Vital Signs Date Time Temp Pulse Resp B/P (MAP) Pulse Ox O2 Delivery O2 Flow Rate FiO2 01/24/21 07:44 98.8 81 19 127/79 (95) 96 Room Air 98.8 Comment Review of Relevant I have reviewed the following items jagjit (where applicable) has been applied. Labs Laboratory Tests Test 01/24/21 07:00 01/24/21 07:25 SARS-CoV-2 Antigen (Rapid) Negative (NEGATIVE) White Blood Count 11.5 x10^3/uL (4.0-11.0) Red Blood Count 4.66 x10^6/uL (4.30-5.70) Hemoglobin 13.7 g/dL (13.0-17.5) Hematocrit 40.7 % (39.0-53.0) Mean Corpuscular Volume 87 fL (79-100) Mean Corpuscular Hemoglobin 29 pg (25-35) Mean Corpuscular Hemoglobin Concent 34 g/dL (31-37) Red Cell Distribution Width 14.5 % (11.5-14.5) Platelet Count 321 x10^3/uL (140-400) Prothrombin Time 13.8 SEC (11.7-14.0) Prothromb Time International Ratio 1.1 (0.8-1.1) Sodium Level 143 mmol/L (136-145) Potassium Level 3.8 mmol/L (3.5-5.1) Chloride Level 105 mmol/L (98-107) Carbon Dioxide Level 27 mmol/L (21-32) Anion Gap 11 (6-14) Blood Urea Nitrogen 15 mg/dL (8-26) Creatinine 0.7 mg/dL (0.7-1.3) Estimated GFR (Cockcroft-Gault) 110.9 Glucose Level 96 mg/dL (70-99) Calcium Level 8.8 mg/dL (8.5-10.1) Laboratory Tests Test 01/24/21 07:00 01/24/21 07:25 SARS-CoV-2 Antigen (Rapid) Negative (NEGATIVE) White Blood Count 11.5 x10^3/uL (4.0-11.0) Red Blood Count 4.66 x10^6/uL (4.30-5.70) Hemoglobin 13.7 g/dL (13.0-17.5) Hematocrit 40.7 % (39.0-53.0) Mean Corpuscular Volume 87 fL (79-100) Mean Corpuscular Hemoglobin 29 pg (25-35) Mean Corpuscular Hemoglobin Concent 34 g/dL (31-37) Red Cell Distribution Width 14.5 % (11.5-14.5) Platelet Count 321 x10^3/uL (140-400) Prothrombin Time 13.8 SEC (11.7-14.0) Prothromb Time International Ratio 1.1 (0.8-1.1) Sodium Level 143 mmol/L (136-145) Potassium Level 3.8 mmol/L (3.5-5.1) Chloride Level 105 mmol/L (98-107) Carbon Dioxide Level 27 mmol/L (21-32) Anion Gap 11 (6-14) Blood Urea Nitrogen 15 mg/dL (8-26) Creatinine 0.7 mg/dL (0.7-1.3) Estimated GFR (Cockcroft-Gault) 110.9 Glucose Level 96 mg/dL (70-99) Calcium Level 8.8 mg/dL (8.5-10.1) Medications Current Medications Lidocaine HCl (Lidocaine 1% 20ml Vial) 20 ml STK-MED ONCE .ROUTE ; Start 01/24/21 at 07:45; Stop 01/24/21 at 07:45; Status DC Iodixanol (Visipaque 320) 100 ml STK-MED ONCE .ROUTE ; Start 01/24/21 at 07:46; Stop 01/24/21 at 07:46; Status DC Iodixanol (Visipaque 320) 100 ml STK-MED ONCE .ROUTE ; Start 01/24/21 at 07:46; Stop 01/24/21 at 07:46; Status DC Heparin Sodium/ Sodium Chloride 1,000 ml @ As Directed STK-MED ONCE .ROUTE ; Start 01/24/21 at 07:46; Stop 01/24/21 at 07:47; Status DC Active Scripts Active Reported Naphcon-A Eye Drops (Naphazoline Hcl/Pheniramine) 15 Ml Drops 15 Ml OP QID Cidaflex Tablet (Glucosamine Hcl/Chondr Gil A Na) 1 Each Tablet 1 Tab PO BID 30 Days Fluticasone Propionate Nasal Delong (Fluticasone Propionate) 16 Gm Delong.susp 2 Delong NS DAILY D3-50 (Cholecalciferol (Vitamin D3)) 50,000 Unit Capsule 1 Cap PO WEEKLY 28 Days Amlodipine Besylate 10 Mg Tablet 10 Mg PO DAILY Clopidogrel (Clopidogrel Bisulfate) 75 Mg Tablet 1 Tab PO DAILY Pantoprazole Sodium (Pantoprazole Sodium) 40 Mg Tablet. 40 Mg PO DAILYAC Montelukast Sodium Tablet (Montelukast Sodium) 10 Mg Tablet 10 Mg PO HS Aspir 81 (Aspirin) 81 Mg Tablet. 81 Mg PO Simvastatin 20 Mg Tablet 20 Mg PO Lisinopril 20 Mg Tablet 20 Mg PO Vitals/I & O Vital Sign - Last 24 Hours 01/24/21 07:44 Temp 98.8 98.8 Pulse 81 Resp 19 B/P (MAP) 127/79 (95) Pulse Ox 96 O2 Delivery Room Air Justifications for Admission Other Justification ARACELI MACHADO MD Jan 24, 2021 08:13
[2021-01-24] MEDS ORDERED: MIDAZOLAM HCL/PF 2 MG/2 ML VIAL. ONE ×2 (08:40→09:07)
[2021-01-24] MEDS ORDERED: fentaNYL PF VIAL 100 MCG/2 ML VIAL ONE ×2 (08:41→09:07)
[2021-01-24] MEDS ORDERED: HEPARIN for IV BOLUS 10,000 UNIT/10 ML VIAL. ONE (08:41)
[2021-01-24] MEDS: fentaNYL PF VIAL 100 MCG/2 ML VIAL IV ONE (08:53)
[2021-01-24] MEDS: MIDAZOLAM HCL/PF 2 MG/2 ML VIAL. IV ONE (08:53)
[2021-01-24] MEDS: LIDOCAINE 1% Multi-Dose 20 ML VIAL. INJ ONE (09:00)
[2021-01-24] MEDS ORDERED: ACET325T9 PO (09:12)
--- NOTE | 2021-01-24 09:13 | DISCH ---
DISCHARGE INSTRUCTIONS Condition on Discharge Condition on Discharge: Stable Activity After Discharge Activity Instructions for Disc: Bedrest today Lifting Instructions after Dis: No heavy lifting, No pulling or pushing, Do not lift >10 pounds Driving Instructions after Dis: Do not drive today Weight Bearing Status after Di: As tolerated Diet after Discharge Diet after Discharge: Regular Wound Incision Care Other wound/incision instructi: remove dressing in 2 days, then may shower Contacting the DRShahzad after DC Call your doctor for: If your condition worsens Follow-Up Follow up with: Dr. Carvajal in 4-6 weeks, call for appointment [phone] Treatment/Equipment after DC Adaptive Equipment Issued: None BRIANNA BUSTILLOS APRN Jan 24, 2021 09:13
[2021-01-24] MEDS: HEPARIN for IV BOLUS 10,000 UNIT/10 ML VIAL. IVP ONE (09:15)
[2021-01-24] MEDS ORDERED: CONTRAST GIVEN. MC PRN (09:45)
[2021-01-24] MEDS: IODIXANOL 320 MG/ML 100 ML VIAL. IART ONE (09:45)
--- NOTE | 2021-01-24 10:35 | PDOC4 ---
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 Ultrasound-guided access right common femoral artery #2 radiology supervision for potation left leg runoff (at the recent right leg intervention aorta iliacs were found to be widely patent so not reimaged today) #3 left popliteal directional atherectomy and balloon angioplasty Hawk 1M atherectomy device and 5 x 100 balloon #4 left anterior tibial artery directional atherectomy and balloon angioplasty Hawk 1M atherectomy and 3 x 120 balloon single inflation #5 left peroneal artery directional atherectomy and balloon angioplasty Hawk 1 and and 3 x 120 balloon 3 overlapping inflations #6 placement of Angio-Seal closure device right common femoral artery access with excellent hemostasis Surgeon: Malachi Machado MD Vascular Surgery Anesthesia Type: Conscious sedation under surgeon and RN supervision using intravenous fentanyl a nd Versed Total 74 minutes Versed 4 mg fentanyl 200 mcg Blood Loss: Minimal less than 10 cc Specimans Obtained: None Findings: 1. Left external iliac common femoral and profundofemoral artery widely patent #2 proximal left SFA is widely patent, mid to distal left SFA have some moderately calcified atherosclerotic disease without significant flow-limiting stenosis #3 there is a focal occlusion of the popliteal artery in the P2 segment directly behind the knee with significant occlusive disease in the popliteal artery below this in the P3 --I was able to successfully cross these and treat these with directional atherectomy and balloon angioplasty with an excellent result minimal residual stenosis no dissection or extravasation #4 the origin of the anterior tibial artery showed a high-grade stenosis partial occlusionwas able to treat this with directional atherectomy and balloon angioplasty with opening of the ATAdistal ROCIO occluded but vessel give good collaterals #5 the TP trunk and peroneal arteries show diffuse disease down to the level of the ankle where the peroneal give a large collateral and what appears to be the dorsalis pedis. This was opened with directional atherectomy and overlapping inflations with a 3 x 120 balloon with excellent results brisk flow to the foot #6 left posterior tibial artery is occluded at its origin and reconstitutes in the mid calf and is open at the ankle Complications: None Operative Note: Patient was taken to the Imaging Science Professor and placed supine the table. The groins were prepped and draped in usual sterile fashion and appropriate timeout was performed. Conscious sedation was induced under surgeon RN supervision using intravenous fentanyl and Versed after placement of appropriate monitoring devices. Attention is directed right groin where the right common femoral arteries fluoroscopically marked over the femoral head and exam with ultrasound. The vessels found to be widely patent with good flow and an image of the vessels taken and saved for the medical record. Under real-time ultrasound guidance local anesthetic was injected in the right groin and the right common femoral artery was accessed in retrograde fashion using a micropuncture needle. This was used to pass micropuncture wire to the iliac artery and placement was confirmed under fluoroscopy. We then use the cylinder technique and place a micropuncture sheath and this back blood easily. This was used to introduce a Bentson wire and abdominal aorta and this was used to exchange the micropuncture sheath for a 5 [place] sheath which was aspirated and flushed without difficulty. These were used to introduce a flush catheter into the distal aorta. This was used to of the artery bifurcation and passed a wire and catheter up and over. I had some difficulty getting the wire to the external leg artery so the catheter was used to perform an iliac/pelvic angiogram. We were then able to pass the wire into the external guarding in the common femoral artery and the cath was advanced to the left common femoral artery. Left leg runoff was obtained. We decided to intervene to the patient was given intravenous heparin and the catheter was used to pass a Storq wire into the left SFA. This was used to remove the catheter and exchanged the 5 [place]ian sheath for a 6 [place]ian 65 cm Terumo destination sheath passed up and over the bifurcation with the distal tip in the mid to distal left SFA. I used the Bentson wire and an angled Zaidi cross catheter to cross the popliteal artery complete occlusion and then direct a 0.014 Glidewire advantage into the anterior tibial artery. This was used to deliver a Hawk 1M directional atherectomy device and a perform directional atherectomy of the popliteal artery occlusion and proximal anterior tibial artery. I performed a single pass along the ROCIO and multiple passes along the area [employer] in the popliteal artery and opposing planes. I followed this with low-pressure 4 debo balloon angioplasty the popliteal artery with a 5 x 100 balloon and angioplasty of the anterior tibial artery extending into the popliteal artery using a 3 x 120 balloon this showed the popliteal artery widely patent without complication on follow-up angiography. The proximal ROCIO was now opened. I attempted to pass the wire distally through the ROCIO but what I thought was distal reconstitution of the ROCIO initial images was asked to the peroneal artery. This gave excellent flow out into the foot and actually connected to the dorsalis pedis. The wire was pulled back and redirected through the TP trunk across the peroneal artery and area of occlusion and I was able to redirect the wire into the lumen of the peroneal artery distally and out of the foot. I used the [employer] 1M directional atherectomy device to perform directional atherectomy of the TP trunk and peroneal artery and then ballooned these with a 3 x 120 balloon with 3 overlapping inflations. This showed excellent flow out to the foot via the reconstituted popliteal and peroneal artery. There was a short occlusion of the dorsalis pedis but as this was for ischemic rest pain and not for limb salvage as not try to intervene on this. The reconstituted proximal ROCIO gave additional good collaterals into the leg. At this point if we had adequate flow to resolve his ischemic rest pain. Small wires and catheters removed. Sheath was pulled back to the bifurcation used to pass Bentson wire to the aorta. The sheath was removed over the wire and the wire was used to deliver a 6 [place] Angio-Seal device to the right femoral artery access site with excellent hemostasis. The patient was escorted recovery in stable condition there were no complications he told procedure well throughout. He was already on aspirin Plavix and a statin at home will continue these. I will send a note to his PCP considering increasing his statin dose. He was originally in office patient Dr. Carvajal will arrange for follow-up with her in few weeks. ARACELI MACHADO MD Jan 24, 2021 10:35"
[2021-01-24] MEDS ORDERED: CLOPIDOGREL BISULFATE 75 MG TABLET ONE (11:54)
[2021-01-24] MEDS: CLOPIDOGREL BISULFATE 75 MG TABLET PO ONE (11:59)
== END 2021-01-24 12:42 | disposition home or self-care (01) ==
LOC: CCL 06:44
PROVIDERS: ATTEND Surgery Vascular Surgery
DX: I70.222 Atherosclerosis of native arteries of extremities with rest pain, left leg (principal); I70.235 Atherosclerosis of native arteries of right leg with ulceration of other part of foot; Z20.822 Contact with and (suspected) exposure to COVID-19; E78.00 Pure hypercholesterolemia, unspecified; I10 Essential (primary) hypertension; K21.9 Gastro-esophageal reflux disease without esophagitis; J45.909 Unspecified asthma, uncomplicated; M19.90 Unspecified osteoarthritis, unspecified site; Z85.828 Personal history of other malignant neoplasm of skin; Z79.899 Other long term (current) drug therapy; Z98.890 Other specified postprocedural states; Z79.82 Long term (current) use of aspirin; Z88.8 Allergy status to other drugs, medicaments and biological substances
CPT/HCPCS: 36415; 37225; 37229; 37234; 75710; 76937; 80048; 85027; 85610; 87426; 99152; 99153; C1724; C1725; C1760; C1769; C1887; C1892; C1894; C9803; J1644; J2250; J3010; J3490; Q9967; U0003; U0005; G0269; C1771